=== PATIENT | male | born 1990 ===

== ENCOUNTER 2020-01-30 01:46 | Emergency (ER) | payer OTHER ==
[~2020-01-30] VITALS: Ht 177.8 cm; Wt 75.0 kg
[2020-01-30 01:51] VITALS: BP 178/147
--- NOTE | 2020-01-30 02:01 | NUR ---
DR. CHRIS AT BEDSIDE.
== END 2020-01-30 02:15 | disposition left against medical advice (07) ==
LOC: ER 01:47
DX: R21 Rash and other nonspecific skin eruption (principal); R10.32 Left lower quadrant pain; F17.200 Nicotine dependence, unspecified, uncomplicated; F12.90 Cannabis use, unspecified, uncomplicated; F15.90 Other stimulant use, unspecified, uncomplicated; Z60.2 Problems related to living alone
CPT/HCPCS: 99281; 99283